=== PATIENT | female | born 1985 | race Caucasian/White ===

== ENCOUNTER → 2020-10-20 | Outpatient (CLI) | payer OTHER | LOC: KOH-I 16:28 | DX: R22.0 Localized swelling, mass and lump, head (principal) | CPT/HCPCS: 70260 ==

== ENCOUNTER → 2022-01-09 | Outpatient (CLI) | payer OTHER | LOC: EXRD 11:29 | DX: R22.0 Localized swelling, mass and lump, head (principal) | CPT/HCPCS: 76536 ==